=== PATIENT | female | born 1975 | race African-American/Black ===

== ENCOUNTER 2017-01-05 19:11 | Emergency (ER) | payer MEDICAID, MEDICARE, OTHER ==
[~2017-01-05] VITALS: Ht 167.6 cm; Wt 85.0 kg
[2017-01-05] MEDS ORDERED: LORAZEPAM 1MG TABLET PO ONE (22:15)
[2017-01-05] MEDS ORDERED: ONDANSETRON 4MG ODT PO ONE (22:15)
[2017-01-05 22:49] LABS: BASOPHILS % 0.5 % (0.0-2.0); EOSINOPHILS % 1.5 % (0.0-5.0); HEMATOCRIT. 37.5 % (36.0-48.0); HEMOGLOBIN. 11.8 g/dL (12.0-16.0); LYMPHOCYTES % 25.1 % (20.0-50.0); MEAN CORPUSCULAR HGB CONC 31.6 g/dL (31.0-37.0); MEAN CORPUSCULAR VOLUME 85.4 fL (81.0-99.0); MEAN PLATELET VOLUME 9.5 fl (7.4-10.4); MONOCYTES % 9.7 % (2.0-8.0); NEUTROPHILS % 63.2 % (40.0-76.0); PLATELET 235 x1000/uL (130-400); RED BLOOD CELL COUNT 4.39 mill/uL (4.2-5.4); RED CELL DISTRIBUTION WIDTH 15.3 % (11.6-14.6); WHITE BLOOD COUNT 9.3 x1000/uL (4.5-11.0)
[2017-01-05 22:54] LABS: CHLORIDE 103 mEq/L (98-107); INDEX HEMOLYSI 1 (1-3); INDEX ICTERIC 1 (1-4); INDEX LIPEMIC 1 (1-3)
[2017-01-05 22:57] LABS: CLARITY URINE CLEAR (CLEAR); COLOR URINE YELLOW (YELLOW); GLUCOSE URINE NEGATIVE (NEGATIVE); KETONES URINE NEGATIVE (NEGATIVE); LEUKOCYTE ESTERASE URINE NEGATIVE (NEGATIVE); NITRITE URINE NEGATIVE (NEGATIVE); OCCULT BLOOD URINE NEGATIVE (NEGATIVE); PH URINE 6.5 (4.5-8.0); PROTEIN URINE NEGATIVE (NEGATIVE); SPECIFIC GRAVITY URINE 1.013 (1.005-1.030)
[2017-01-05 23:02] LABS: ACETAMINOPHEN < 2 ug/mL (10-30); ALANINE AMINOTRANSFERASE 22 IU/L (13-61); ALBUMIN 3.8 g/dL (3.4-5.0); ANION GAP 9; CALCIUM 8.9 mg/dL (8.5-10.1); CARBON DIOXIDE 30 mEq/L (21-32); ETHANOL BLOOD < 10 mg/dL; UREA NITROGEN BLOOD 16 mg/dL (7-21); eGFR > 60 mL/min (>60)
[2017-01-05 23:10] LABS: *AMPHETAMINES SCREEN URINE NEGATIVE (NEGATIVE); *BARBITURATES SCREEN URINE NEGATIVE (NEGATIVE); *BENZODIAZEPINES SCREEN URINE NEGATIVE (NEGATIVE); *COCAINE SCREEN URINE NEGATIVE (NEGATIVE); CANNABINOID URINE SCREEN NEGATIVE (NEGATIVE); ECSTASY MDMA SCREEN URINE NEGATIVE (NEGATIVE); METHADONE URINE SCREEN NEGATIVE (NEGATIVE); OPIATES URINE SCREEN NEGATIVE (NEGATIVE); PHENCYCLIDINE URINE SCREEN NEGATIVE (NEGATIVE)
[2017-01-06 10:00] VITALS: BP 133/80
== END 2017-01-06 10:56 | disposition home or self-care (01) ==
LOC: ER 19:31
DX: R45.851 Suicidal ideations (principal); R44.0 Auditory hallucinations; R45.850 Homicidal ideations; R11.2 Nausea with vomiting, unspecified; I10 Essential (primary) hypertension; F31.9 Bipolar disorder, unspecified; Z88.0 Allergy status to penicillin
CPT/HCPCS: 36415; 80053; 80305; 80329; 81003; 81025; 85025; 99284; G0482; Q0162; 80307

== ENCOUNTER 2020-12-21 23:05 | Emergency (ER) | payer MEDICARE, MEDICAID ==
[~2020-12-21] VITALS: Ht 162.6 cm; Wt 94.0 kg
[2020-12-22 00:01] LABS: BASOPHILS % 1.1 % (0.0-2.0); EOSINOPHILS % 1.4 % (0.0-5.0); HEMATOCRIT. 38.4 % (36.0-48.0); HEMOGLOBIN. 12.2 g/dL (12.0-16.0); LYMPHOCYTES % 29.9 % (20.0-50.0); MEAN CORPUSCULAR HEMOGLOBIN 30.9 pg (28.0-32.0); MEAN CORPUSCULAR VOLUME 97.2 fL (81.0-99.0); MEAN PLATELET VOLUME 8.7 fl (7.4-10.4); MONOCYTES % 6.4 % (2.0-8.0); NEUTROPHILS % 61.2 % (40.0-76.0); PLATELET 266 x1000/uL (130-400); RED BLOOD CELL COUNT 3.95 mill/uL (4.2-5.4); RED CELL DISTRIBUTION WIDTH 21.6 % (11.6-14.6)
[2020-12-22 00:06] LABS: CHLORIDE 108 mEq/L (98-107)
[2020-12-22 00:11] LABS: ETHANOL BLOOD < 10 mg/dL
[2020-12-22 00:21] LABS: CLARITY URINE CLEAR (CLEAR); COLOR URINE YELLOW (YELLOW); KETONES URINE NEGATIVE (NEGATIVE); LEUKOCYTE ESTERASE URINE NEGATIVE (NEGATIVE); NITRITE URINE NEGATIVE (NEGATIVE); OCCULT BLOOD URINE NEGATIVE (NEGATIVE); PH URINE 6.5 (4.5-8.0); PROTEIN URINE TRACE (NEGATIVE)
[2020-12-22 00:29] LABS: *AMPHETAMINES SCREEN URINE NEGATIVE (NEGATIVE); *BARBITURATES SCREEN URINE NEGATIVE (NEGATIVE)
[2020-12-22 00:31] LABS: PHENCYCLIDINE URINE SCREEN NEGATIVE (NEGATIVE)
[2020-12-22 00:36] LABS: *BENZODIAZEPINES SCREEN URINE NEGATIVE (NEGATIVE); *COCAINE SCREEN URINE NEGATIVE (NEGATIVE)
[2020-12-22 00:47] LABS: METHADONE URINE SCREEN NEGATIVE (NEGATIVE); OPIATES URINE SCREEN NEGATIVE (NEGATIVE)
[2020-12-22 00:52] LABS: CANNABINOID URINE SCREEN PRESUMTIVE POSITIVE (NEGATIVE)
[2020-12-22] MEDS ORDERED: FUROSEMIDE 40MG TABLET PO ONE (01:15)
[2020-12-22 03:00] VITALS: BP 126/97
== END 2020-12-22 04:31 | disposition home or self-care (01) ==
LOC: ER 23:05
DX: R25.2 Cramp and spasm (principal); R45.851 Suicidal ideations; R03.0 Elevated blood-pressure reading, without diagnosis of hypertension; I50.9 Heart failure, unspecified
CPT/HCPCS: 36415; 80053; 80305; 80320; 81003; 83880; 85025; 99283; G0480

== ENCOUNTER 2020-12-22 14:11 | Inpatient (IN) | payer MEDICARE, MEDICAID ==
[~2020-12-22] VITALS: Ht 170.2 cm; Wt 90.9 kg
[2020-12-22] MEDS ORDERED: LEVOFLOXACIN 500MG PREMIX 100 ML IV ONE (14:45)
[2020-12-22 15:05] LABS: HEMOGLOBIN. 13.5 g/dL (12.0-16.0); MEAN CORPUSCULAR HEMOGLOBIN 31.3 pg (28.0-32.0); MEAN CORPUSCULAR VOLUME 97.5 fL (81.0-99.0); MEAN PLATELET VOLUME 9.2 fl (7.4-10.4); PLATELET 262 x1000/uL (130-400); RED BLOOD CELL COUNT 4.31 mill/uL (4.2-5.4)
[2020-12-22 15:14] LABS: CHLORIDE 104 mEq/L (98-107)
[2020-12-22] MEDS ORDERED: FUROSEMIDE 100MG/10ML VIAL IVP ONE (16:00)
[2020-12-22 16:06] LABS: PLATELET ESTIMATE NORMAL
[2020-12-23] MEDS ORDERED: CLONIDINE 0.1MG TABLET PO PRN (03:00)
[2020-12-23] MEDS ORDERED: NITROGLYCERIN 0.4MG TABLET SL SL PRN (03:00)
[2020-12-23] MEDS ORDERED: TRAZODONE HCL 50MG TABLET PO PRN (03:00)
[2020-12-23] MEDS ORDERED: ONDANSETRON HCL 4MG/2ML INJ IV PRN (03:00)
[2020-12-23] MEDS: ACETAMINOPHEN 325MG TABLET PO PRN ×3 (05:11→20:29)
[2020-12-23] MEDS: FUROSEMIDE 40MG/4ML VIAL IVP SCH ×2 (13:29→18:19)
[2020-12-23] MEDS: LOSARTAN POTASSIUM 25 MG TABLET PO SCH (13:29)
[2020-12-23] MEDS: HEPARIN 5000 UNITS/ML VIAL SUBCUT SCH ×2 (17:02→20:30)
[2020-12-23 17:15] VITALS: BP 143/97
[2020-12-23] MEDS ORDERED: METOPROLOL TARTRATE 5MG/5ML VIAL IV NR (19:00)
[2020-12-23 19:46] VITALS: BP 150/100
[2020-12-23] MEDS ORDERED: METOPROLOL TARTRATE 25MG TABLET PO STA (19:59)
[2020-12-23 20:49] LABS: BG BASE EXCESS -1.9 mmol/L (-2.0-2.0); BG CARBOXYHEMOGLOBIN 1.2 % (0.5-1.5); BG DEOXYHEMOGLOBIN 2.4 % (0.0-5.0); BG FRACTION INSPIRED OXYGEN 21; BG HCO3 ACT 21.2 mmol/L (22.0-26.0); BG METHEMOGLOBIN 0.3 % (0.0-1.5); BG OXYGEN SATURATION 97.6 % (92.0-98.5); BG OXYHEMOGLOBIN 96.1 % (94.0-97.0); BG PCO2 32.2 mmHg (35.0-45.0); BG PH 7.437 (7.350-7.450); BG SAMPLE SITE LEFT RADIAL; BG TOTAL HEMOGLOBIN 16.1 g/dL (12.0-18.0); BG VENT MODE ROOM AIR
[2020-12-23] MEDS ORDERED: CARVEDILOL 3.125 MG TABLET PO SCH (21:00)
[2020-12-24 00:05] VITALS: BP 128/96
[2020-12-24 04:04] VITALS: BP 114/81
[2020-12-24] MEDS: ACETAMINOPHEN 325MG TABLET PO PRN ×2 (04:45→11:20)
[2020-12-24] MEDS: FUROSEMIDE 40MG/4ML VIAL IVP SCH ×2 (05:56→16:41)
[2020-12-24 07:53] LABS: BASOPHILS % 0.9 % (0.0-2.0); EOSINOPHILS % 0.7 % (0.0-5.0); HEMATOCRIT. 48.3 % (36.0-48.0); HEMOGLOBIN. 15.4 g/dL (12.0-16.0); LYMPHOCYTES % 20.6 % (20.0-50.0); MEAN CORPUSCULAR HEMOGLOBIN 31.4 pg (28.0-32.0); MEAN CORPUSCULAR VOLUME 98.4 fL (81.0-99.0); MEAN PLATELET VOLUME 8.8 fl (7.4-10.4); MONOCYTES % 9.7 % (2.0-8.0); NEUTROPHILS % 68.1 % (40.0-76.0); PLATELET 304 x1000/uL (130-400); RED BLOOD CELL COUNT 4.92 mill/uL (4.2-5.4); RED CELL DISTRIBUTION WIDTH 22.6 % (11.6-14.6)
[2020-12-24 08:00] VITALS: BP 128/92
[2020-12-24 08:05] LABS: CHLORIDE 104 mEq/L (98-107)
[2020-12-24] MEDS: LOSARTAN POTASSIUM 25 MG TABLET PO SCH (08:12)
[2020-12-24] MEDS: METOPROLOL TARTRATE 25MG TABLET PO SCH ×2 (08:12→21:00)
[2020-12-24] MEDS: HEPARIN 5000 UNITS/ML VIAL SUBCUT SCH ×2 (08:13→22:20)
[2020-12-24 12:00] VITALS: BP 96/57
[2020-12-24] MEDS ORDERED: LEVOFLOXACIN 500MG PREMIX 100 ML IV SCH ×2 (15:00→17:00)
[2020-12-24 16:00] VITALS: BP 99/70
[2020-12-24 20:47] VITALS: BP 91/55
[2020-12-25 00:12] VITALS: BP 90/49
[2020-12-25 04:00] VITALS: BP 98/48
[2020-12-25 06:43] LABS: BASOPHILS % 0.8 % (0.0-2.0); EOSINOPHILS % 2.9 % (0.0-5.0); HEMATOCRIT. 42.8 % (36.0-48.0); HEMOGLOBIN. 13.6 g/dL (12.0-16.0); LYMPHOCYTES % 28.8 % (20.0-50.0); MEAN CORPUSCULAR HEMOGLOBIN 31.3 pg (28.0-32.0); MEAN CORPUSCULAR VOLUME 98.2 fL (81.0-99.0); MEAN PLATELET VOLUME 9.3 fl (7.4-10.4); MONOCYTES % 10.4 % (2.0-8.0); NEUTROPHILS % 57.1 % (40.0-76.0); PLATELET 266 x1000/uL (130-400); RED BLOOD CELL COUNT 4.35 mill/uL (4.2-5.4); RED CELL DISTRIBUTION WIDTH 22.9 % (11.6-14.6)
[2020-12-25 07:27] LABS: CHLORIDE 105 mEq/L (98-107)
[2020-12-25] MEDS: FUROSEMIDE 40MG/4ML VIAL IVP SCH (07:57)
[2020-12-25 08:00] VITALS: BP 94/58
[2020-12-25] MEDS: HEPARIN 5000 UNITS/ML VIAL SUBCUT SCH (08:00)
[2020-12-25] MEDS: LOSARTAN POTASSIUM 25 MG TABLET PO SCH (09:00)
[2020-12-25] MEDS: METOPROLOL TARTRATE 25MG TABLET PO SCH (09:00)
[2020-12-25] MEDS ORDERED: FLUO40CA8 PO (10:10)
[2020-12-25] MEDS ORDERED: ARIP20TA2 GT (10:10)
[2020-12-25 12:00] VITALS: BP 115/78
[2020-12-25] MEDS ORDERED: METO25TA6 PO (13:27)
[2020-12-25] MEDS ORDERED: AZIT500T8 MT (13:27)
[2020-12-25] MEDS ORDERED: LOSA25TA3 PO (13:27)
[2020-12-25] MEDS ORDERED: FURO-151 MT (13:27)
[2020-12-25 13:56] VITALS: BP 115/78
== END 2020-12-25 15:16 | disposition home or self-care (01) | DRG 871 ==
LOC: ER 14:11 → MICUSO 16:52 → EDBEDREQTM 17:21 → EDBEDREQ 17:21 → 7WST 12-23 15:15
PROVIDERS: ADMIT Family Medicine Adult Medicine; ATTEND Family Medicine Adult Medicine
DX: A41.89 Other specified sepsis (principal); U07.1 COVID-19; J12.82 Pneumonia due to coronavirus disease 2019; J96.01 Acute respiratory failure with hypoxia; E87.1 Hypo-osmolality and hyponatremia; J98.11 Atelectasis; I43 Cardiomyopathy in diseases classified elsewhere; I11.0 Hypertensive heart disease with heart failure; F20.9 Schizophrenia, unspecified; F43.10 Post-traumatic stress disorder, unspecified; G89.4 Chronic pain syndrome; R74.01 Elevation of levels of liver transaminase levels; F31.9 Bipolar disorder, unspecified; I50.9 Heart failure, unspecified; Z87.891 Personal history of nicotine dependence; Z91.19 Patient's noncompliance with other medical treatment and regimen; Z95.810 Presence of automatic (implantable) cardiac defibrillator; Z79.899 Other long term (current) drug therapy; Z88.8 Allergy status to other drugs, medicaments and biological substances; Z68.31 Body mass index [BMI] 31.0-31.9, adult
CPT/HCPCS: 36415; 36600; 71045; 80053; 80305; 81003; 82375; 82805; 83605; 83735; 83880; 84484; 85025; 93005; 96365; 99285; C1893; J1644; J1940; J1956; U0003

== ENCOUNTER 2020-12-30 21:49 | Emergency (ER) | payer MEDICARE, MEDICAID ==
[~2020-12-30] VITALS: Ht 167.6 cm; Wt 91.0 kg
[~2020-12-30 21:49] MED LIST: ARIP20TA2 GT; AZIT500T8 MT; FLUO40CA8 PO; FURO-151 MT; LOSA25TA3 PO; METO25TA6 PO
[2020-12-30] MEDS ORDERED: KETOROLAC 60MG/2ML VIAL IM ONE (22:30)
[2020-12-30 22:39] VITALS: BP 136/70
[2020-12-30 22:59] LABS: CLARITY URINE CLEAR (CLEAR); COLOR URINE YELLOW (YELLOW); KETONES URINE TRACE (NEGATIVE); LEUKOCYTE ESTERASE URINE NEGATIVE (NEGATIVE); NITRITE URINE NEGATIVE (NEGATIVE); OCCULT BLOOD URINE NEGATIVE (NEGATIVE); PH URINE 5.5 (4.5-8.0); PROTEIN URINE 2+ (NEGATIVE); SPECIFIC GRAVITY URINE 1.022 (1.005-1.030)
[2020-12-31 00:06] LABS: CHLORIDE 104 mEq/L (98-107)
[2020-12-31] MEDS ORDERED: NAPR-681 MT (00:14)
[2021-01-01] MEDS ORDERED: ACET-2708 MT (11:42)
== END 2020-12-31 00:21 | disposition home or self-care (01) ==
LOC: ER 21:49
DX: M54.5 Low back pain (principal); I10 Essential (primary) hypertension; F20.9 Schizophrenia, unspecified
CPT/HCPCS: 36415; 80048; 81003; 96372; 99283; J1885

== ENCOUNTER 2021-01-01 10:54 | Emergency (ER) | payer MEDICARE, MEDICAID ==
[~2021-01-01] VITALS: Ht 165.1 cm; Wt 80.0 kg
[~2021-01-01 10:54] MED LIST changes: +NAPR-681 MT
[2021-01-01 10:56] VITALS: BP 119/90
[2021-01-01] MEDS ORDERED: ACET-2708 MT (11:42)
[2021-01-01] MEDS ORDERED: ACETAMINOPHEN 325MG TABLET PO ONE (11:45)
== END 2021-01-01 11:55 | disposition home or self-care (01) ==
LOC: ER 10:54
DX: M25.562 Pain in left knee (principal); E11.9 Type 2 diabetes mellitus without complications; I10 Essential (primary) hypertension; E78.00 Pure hypercholesterolemia, unspecified; F41.9 Anxiety disorder, unspecified
CPT/HCPCS: 99283

== ENCOUNTER 2021-01-02 21:57 | Inpatient (IN) | payer MEDICARE, MEDICAID ==
[~2021-01-02] VITALS: Ht 162.6 cm; Wt 97.5 kg
[~2021-01-02 21:57] MED LIST changes: +ACET-2708 MT
[2021-01-02] MEDS ORDERED: ASPIRIN 325MG EC TABLET PO ONE (23:00)
[2021-01-03 00:06] LABS: CHLORIDE 110 mEq/L (98-107)
[2021-01-03 00:07] LABS: BASOPHILS % 0.8 % (0.0-2.0); EOSINOPHILS % 0.9 % (0.0-5.0); HEMATOCRIT. 41.7 % (36.0-48.0); HEMOGLOBIN. 13.6 g/dL (12.0-16.0); LYMPHOCYTES % 27.3 % (20.0-50.0); MEAN CORPUSCULAR VOLUME 98.2 fL (81.0-99.0); MONOCYTES % 6.1 % (2.0-8.0); NEUTROPHILS % 64.9 % (40.0-76.0); PLATELET 191 x1000/uL (130-400); RED BLOOD CELL COUNT 4.24 mill/uL (4.2-5.4); RED CELL DISTRIBUTION WIDTH 19.6 % (11.6-14.6)
[2021-01-03] MEDS ORDERED: FUROSEMIDE 40MG/4ML VIAL IVP ONE (04:45)
[2021-01-03 09:15] VITALS: BP 134/98
[2021-01-03] MEDS ORDERED: MAGNESIUM/ALUMINUM HYDROXIDE/SIMETHICONE 30ML UDC PO PRN (09:15)
[2021-01-03] MEDS ORDERED: ENOXAPARIN 40MG/0.4ML SYR SUBCUT SCH (09:15)
[2021-01-03] MEDS ORDERED: NITROGLYCERIN 0.4MG TABLET SL SL PRN (09:15)
[2021-01-03] MEDS ORDERED: CLONIDINE 0.1MG TABLET PO PRN (09:15)
[2021-01-03] MEDS ORDERED: ACETAMINOPHEN 325MG TABLET PO PRN ×2 (09:15)
[2021-01-03] MEDS ORDERED: GUAIFENESIN 200MG/10ML SUGAR FREE UDC PO PRN (09:15)
[2021-01-03] MEDS ORDERED: HALOPERIDOL LACTATE 5MG/ML VIAL IM PRN (09:15)
[2021-01-03] MEDS ORDERED: ONDANSETRON HCL 4MG/2ML INJ IV PRN (09:15)
[2021-01-03] MEDS ORDERED: IPRATROPIUM/ALBUTEROL 0.5-3(2.5)MG/3ML NEB NEB PRN (09:15)
[2021-01-03] MEDS ORDERED: DOCUSATE SODIUM 100MG CAPSULE PO PRN (09:15)
[2021-01-03 09:30] VITALS: BP 134/100
[2021-01-03 12:00] VITALS: BP 129/84
[2021-01-03] MEDS: KETOROLAC 15MG/ML VIAL IV PRN (12:35)
[2021-01-03 16:00] VITALS: BP 123/93
[2021-01-03 16:00] LABS: CREATINE KINASE MB FRACTION 1.1 ng/mL (0.5-3.6)
[2021-01-03] MEDS: CARVEDILOL 3.125 MG TABLET PO SCH (17:27)
[2021-01-03 20:00] VITALS: BP 125/86
[2021-01-03] MEDS: FUROSEMIDE 40MG/4ML VIAL IVP SCH (20:13)
[2021-01-03] MEDS: ASCORBIC ACID 500 MG TABLET PO SCH (20:14)
[2021-01-03] MEDS: SPIRONOLACTONE 25MG TABLET PO SCH (20:14)
[2021-01-03] MEDS: FAMOTIDINE 20MG TABLET PO SCH (20:14)
[2021-01-03] MEDS ORDERED: ZOLPIDEM TARTRATE 5MG TABLET PO PRN (21:00)
[2021-01-04] VITALS: BP 120/76
[2021-01-04 00:40] LABS: CREATINE KINASE MB FRACTION 1.3 ng/mL (0.5-3.6)
[2021-01-04 04:00] VITALS: BP 117/84
[2021-01-04] MEDS: CARVEDILOL 3.125 MG TABLET PO SCH (05:44)
[2021-01-04 06:02] LABS: BASOPHILS % 0.9 % (0.0-2.0); EOSINOPHILS % 1.2 % (0.0-5.0); HEMOGLOBIN. 12.8 g/dL (12.0-16.0); LYMPHOCYTES % 23.6 % (20.0-50.0); MEAN CORPUSCULAR HEMOGLOBIN 32.5 pg (28.0-32.0); MEAN CORPUSCULAR VOLUME 99.1 fL (81.0-99.0); MEAN PLATELET VOLUME 10.8 fl (7.4-10.4); MONOCYTES % 6.9 % (2.0-8.0); NEUTROPHILS % 67.4 % (40.0-76.0); PLATELET 180 x1000/uL (130-400); RED BLOOD CELL COUNT 3.94 mill/uL (4.2-5.4); RED CELL DISTRIBUTION WIDTH 19.7 % (11.6-14.6)
[2021-01-04 06:17] LABS: CHLORIDE 107 mEq/L (98-107)
[2021-01-04 06:32] LABS: PHOSPHORUS 4.6 mg/dL (2.5-4.9)
[2021-01-04 08:00] VITALS: BP 122/81
[2021-01-04] MEDS: FAMOTIDINE 20MG TABLET PO SCH (08:09)
[2021-01-04] MEDS: SPIRONOLACTONE 25MG TABLET PO SCH (08:09)
[2021-01-04] MEDS: ASCORBIC ACID 500 MG TABLET PO SCH (08:09)
[2021-01-04] MEDS: FUROSEMIDE 40MG/4ML VIAL IVP SCH (08:10)
[2021-01-04] MEDS ORDERED: ENOXAPARIN 30MG/0.3ML SYR SUBCUT SCH (09:00)
[2021-01-04] MEDS ORDERED: CHOLECALCIFEROL (D3) 1000 UNIT TABLET PO SCH (09:00)
[2021-01-04] MEDS ORDERED: ASPIRIN 325MG EC TABLET PO SCH (09:00)
[2021-01-04] MEDS ORDERED: ZINC SULFATE 220 MG ( 50 ) CAPSULE PO SCH (09:00)
[2021-01-04 12:00] VITALS: BP 120/75
[2021-01-04] MEDS: KETOROLAC 15MG/ML VIAL IV PRN (13:36)
[2021-01-04 16:00] VITALS: BP 123/85
== END 2021-01-04 16:15 | disposition left against medical advice (07) | DRG 291 ==
LOC: ER 21:57 → 8WST 01-03 04:01 → ENRESERV 01-03 08:19
PROVIDERS: ADMIT Internal Medicine; ATTEND Internal Medicine
DX: I11.0 Hypertensive heart disease with heart failure (principal); J96.90 Respiratory failure, unspecified, unspecified whether with hypoxia or hypercapnia; I50.43 Acute on chronic combined systolic (congestive) and diastolic (congestive) heart failure; E78.00 Pure hypercholesterolemia, unspecified; F20.9 Schizophrenia, unspecified; F31.9 Bipolar disorder, unspecified; F41.9 Anxiety disorder, unspecified; I42.9 Cardiomyopathy, unspecified; Z79.899 Other long term (current) drug therapy; Z91.11 Patient's noncompliance with dietary regimen; Z91.14 Patient's other noncompliance with medication regimen; Z91.19 Patient's noncompliance with other medical treatment and regimen; Z88.0 Allergy status to penicillin; Z88.8 Allergy status to other drugs, medicaments and biological substances; Z95.810 Presence of automatic (implantable) cardiac defibrillator
CPT/HCPCS: 36415; 71045; 76830; 76856; 80053; 80061; 82550; 82553; 83036; 83735; 83880; 84100; 84484; 84702; 85025; 86850; 86900; 93005; 93306; 93970; 94640; 99285; C1893; J1650; J1885; J1940